=== PATIENT | female | born 1940 | race Caucasian/White ===

== ENCOUNTER 2017-04-17 07:31 | Day surgery (SDC) | payer OTHER, BC ==
[2017-04-13 13:43] VITALS: BMI 34.4
[2017-04-17] MEDS ORDERED: MIDAZOLAM HCL 2 MG/2 ML SINGLE DOSE VIAL ONE (08:55)
[2017-04-17] MEDS ORDERED: ACETAMINOPHEN 325 MG TABLET (FP) PO PRN (09:22)
[2017-04-17] MEDS ORDERED: oxyCODONE HCL 5 MG TABLET PO PRN (09:22)
[2017-04-17] MEDS ORDERED: ONDANSETRON 4 MG/2 ML VIAL IVPB PRN (09:22)
[2017-04-17] MEDS ORDERED: IBUPROFEN 400 MG TABLET (FP) PO PRN (09:22)
--- NOTE | 2017-04-17 09:53 | HP ---
Admitting History and Physical - Admission History of Present Illness: 76 yo postmenopausal women with large cervical polyp noted on routine gynecologic exam Also noted to have thickened, cystic endometrium on ultrasound She denies postmenopausal bleeding She desires surgical intervention - Past Medical History Cardiovascular: No: HTN Pulmonary: Yes: Asthma (as a child) Gastrointestinal: Yes: Diverticulitis (s/p hemocholectomy) ...: 4 ...Para: 4 Heme/Onc: No: Anemia - Past Surgical History Additional Past Surgical History: b/l knee replacement, 2013 hemicolectomy + renanastomosis 2004 replaced two piece decending colon appendix tonsils removed Left knee surgery gallbladder removed R oophorectomy R breast biopsy - benign cyst - Advance Directives Advance Directives: Yes: Health Care Proxy - Smoking History Smoking history: Former smoker Have you smoked in the past 12 months: No Aproximately how many cigarettes per day: 20 If you are a former smoker, when did you quit?: 2001 - Alcohol/Substance Use Hx Alcohol Use: Yes (rarely) Home Medications - Allergies Allergies/Adverse Reactions: Allergies Allergy/AdvReac Type Severity Reaction Status Date / Time Sulfa (Sulfonamide Allergy Intermediate Hives Verified 04/17/17 08:15 Antibiotics) latex Allergy Rash Verified 04/17/17 08:15 TAPE Allergy BLISTERS Uncoded 04/17/17 08:15 - Home Medications Home Medications: Ambulatory Orders Flaxseed Oil [Flaxseed] 1,000 mg PO DAILY 04/13/17 Glucosamine Sulfate Dipot Chlr [Glucosamine] 1,000 mg PO DAILY 04/13/17 Inulin [Fiber Gummies] 2 gm PO DAILY 04/13/17 Magnesium Oxide [Magnesium] 400 mg PO DAILY 04/13/17 Multivitamin [One Daily] 1 each PO DAILY 04/13/17 [place]-3 Fatty Acids/Fish Oil [Fish Oil 1,000 mg Softgel] 1 each PO DAILY Vitamin D3 04/13/17 Amoxicillin - [Amoxicillin 500mg Capsule -] 500 mg PO UTDICT 04/17/17 Family Disease History - Family Disease History Family History: Denies Review of Systems - Review of Systems Constitutional: reports: No Symptoms Neck: reports: No Symptoms Cardiovascular: reports: No Symptoms Respiratory: reports: No Symptoms Gastrointestinal: reports: No Symptoms Genitourinary: reports: No Symptoms Musculoskeletal: reports: No Symptoms Integumentary: reports: No Symptoms Endocrine: reports: No Symptoms Hematology/Lymphatic: reports: No Symptoms Psychiatric: reports: No Symptoms Physical Examination Vital Signs: Vital Signs Temperature 97.9 F 04/17/17 08:12 Pulse Rate 68 04/13/17 13:28 Respiratory Rate 20 04/17/17 08:12 Blood Pressure 136/72 04/17/17 08:12 O2 Sat by Pulse Oximetry (%) 98 04/17/17 08:11 Constitutional: Yes: Well Nourished, No Distress, Calm Cardiovascular: Yes: Regular Rate and Rhythm Respiratory: Yes: Regular, CTA Bilaterally Gastrointestinal: Yes: Normal Bowel Sounds, Soft Edema: No Integumentary: Yes: WNL Neurological: Yes: WNL Psychiatric: Yes: Alert, Oriented Assessment/Plan 76 yo with cervical/endometrial polyp for hysteroscopy, dilation and curettage, polypectomy 1. Consents reviewed and signed Discussed risks including but not limited to infection, bleeding, uterine perforation needing laparoscopy or laparotomy 2. Patient reports needs orthopedic prophylaxis, will give Ancef preop 3. SCDs for DVT prophylaxis 4. Will proceed to OR
[2017-04-17] MEDS ORDERED: ceFAZolin SODIUM 1 GM VIAL ONE (09:59)
[2017-04-17] MEDS ORDERED: ceFAZolin SODIUM 1 GM VIAL IVPB ONE (10:01)
[2017-04-17] MEDS ORDERED: KETOROLAC TROMETHAMINE 30 MG/1 ML VIAL ONE (10:33)
[2017-04-17] MEDS ORDERED: ONDANSETRON 4 MG/2 ML VIAL ONE (10:33)
[2017-04-17] MEDS ORDERED: DEXAMETHASONE SOD PHOSPHATE 4 MG/1 ML VIAL ONE (10:33)
[2017-04-17] MEDS ORDERED: LACTATED RINGERS SOLUTION 1,000 ML IV SCH (11:00)
--- NOTE | 2017-04-17 11:02 | OP ---
Operative Note - Note: Operative Date: 04/17/17 Pre-Operative Diagnosis: endometrial polyp Operation: hysteroscopy, dilation and curettage, polypectomy, endoecerivcal polypectomy Findings: ~ 4cm endocervical polyp, endometrial polyp Post-Operative Diagnosis: Other (endometrial and endocervical polyp) Surgeon: Suze Quach Anesthesiologist/ENVELOPE PRESS OPERATOR: Elian Wade Specimens Removed: 1. endocervical polyp; 2. endometrial polyp Estimated Blood Loss (mls): 5 Instrument used (Debridements only): Trueclear Fluid Volume Replaced (mls): 900 Operative Report Dictated: Yes
[2017-04-17 11:41] VITALS: TEMP 97.8
[2017-04-17 13:58] VITALS: BP 130/70; PULSE 82
--- NOTE | 2017-04-17 18:58 | OP ---
DATE OF OPERATION: 04/17/2017 Attending physician responsible for signing report, Marti Quach M.D. PREOPERATIVE DIAGNOSIS: Endometrial polyp. POSTOPERATIVE DIAGNOSIS: Endometrial and endocervical polyp. SURGERY: Hysteroscopy, dilation and curettage, polypectomy, endometrial polypectomy, and endocervical polypectomy using Truclear system. SURGEON: Marti Quach M.D. ROLLER PNEUMATIC: Elian Wade CRNA ANESTHESIA: General. SPECIMEN REMOVED: Endocervical polyp and endometrial polyp. ESTIMATED BLOOD LOSS: 5 mL. PLATELETS GIVEN: 900 mL. INDICATION: Patient is a 76-year-old 4 para 4 post menopausal woman with incidental finding of large cervical polyp. She underwent ultrasound that showed thickened cystic endometrium. She was counseled regarding medical and surgical options. She opted for surgical management. She was counseled regarding risks, benefits, and alternatives and complications of the procedure including infection, bleeding, damage to any organs such as bowel, bladder, ureters, uterine perforation. She expressed understanding, was brought to operating room. DESCRIPTION OF PROCEDURE: When anesthesia was found to be adequate, patient was prepped and draped in normal sterile fashion, placed in dorsal lithotomy position using Kvng stirrups. A weighted speculum was placed into the posterior portion of the patient's vagina. Anterior lip of the cervix was grasped using a single tooth tenaculum. A large 4-cm polyp was noted on previous exam and on further investigation, was noted to arise from the anterior lip of the cervix. The cervical canal was gently dilated to accommodate a size 14 Jerod dilator, and the 5-mm, 0-degrees scope was placed into the uterine cavity. The Truclear system was used to visualize the polyp, and resection was done under direct visualization. The instrument was removed, good hemostasis was noted. The endocervical polyp was noted and resected using Bovie electrocautery. Good hemostasis was noted. Fluid deficit was 120, total volume used was 1610, and the resection time in the Truclear system was 3 minutes, 51 seconds. All instruments were removed from the patient's vagina. Patient tolerated procedure well. Estimated blood loss was 5 mL. Patient was brought to the recovery room in stable condition. MARTI QUACH M.D. [id number]
--- NOTE | 2017-04-18 15:43 | PATH ---
Surgical Pathology Report Patient Name: SILVA CLARK [facility]. Rec. #: [id number] /Age/Gender: 1940 (Age: 76) / F Account: [id number] Location: [facility] SUR[facility]ICAL Taken: 04/17/2017 Received: 04/17/2017 Reported: 04/18/2017 Physicians: Suze Quach Specimen(s) Received A: ENDOCERVICAL POLYP B: ENDOMETRIAL POLYP Clinical History Cervical polyp Final Diagnosis A. ENDOCERVICAL POLYP, POLYPECTOMY: BENIGN CERVICAL POLYP OF MIXED ENDO- AND ECTOCERVICAL TYPE. B. ENDOMETRIAL POLYP, DILATION, CURETTAGE, POLYPECTOMY: FRAGMENTS OF ENDOMETRIAL POLYP. Electronically Signed Gurjit Shi M.D. Gross Description A. Received in formalin labeled "endocervical polyp" is a 3.6 x 1.1 x 0.5 cm pink-thurston, polypoid portion of soft tissue. The specimen is bisected and entirely submitted in 2 cassettes. B. Received in formalin labeled "endometrial polyp" is a 2.2 x 1.6 x 0.3 cm aggregate of thurston soft tissue fragments. The formalin is filtered and the specimen is entirely submitted in one cassette. 04/17/201704/17/2017
== END 2017-04-17 13:00 | disposition home or self-care (01) ==
LOC: JASU-SURG 07:31
PROVIDERS: ATTEND Obstetrics & Gynecology
PROC: 0UDB8ZX Extraction of Endometrium, Via Natural or Artificial Opening Endoscopic, Diagnostic (ICD-10-PCS; 2017-04-17)
PROC: 0UBC8ZX Excision of Cervix, Via Natural or Artificial Opening Endoscopic, Diagnostic (ICD-10-PCS; principal; 2017-04-17 09:00)
PROC: 0UB98ZX Excision of Uterus, Via Natural or Artificial Opening Endoscopic, Diagnostic (ICD-10-PCS; 2017-04-17 09:00)
DX: N84.0 Polyp of corpus uteri (principal); N84.1 Polyp of cervix uteri
CPT/HCPCS: 86850; 86900; 86901; 88305-TC; 94760

== ENCOUNTER 2018-01-20 11:11 | Emergency (ER) | payer OTHER, BC ==
[2018-01-20 11:37] VITALS: TEMP 98.4; BMI 39.6
--- NOTE | 2018-01-20 11:46 | PDOC ---
History of Present Illness - General Chief Complaint: Lethargy Stated Complaint: LETHARGY, BODY ACHES & STOMACH UPSET Time Seen by Provider: 01/20/18 11:33 - History of Present Illness Initial Comments: 01/20/18 11:46 Chief complaint: Malaise History of present illness: Patient complains that "I do not feel myself" for about 3 days. Complaints are vague and nonspecific, but include mild epigastric pain, pain in the left neck and upper arm, generalized weakness and fatigue. The pain is intermittent and not associated with eating or exertion. Review of systems: Denies dannie chest pain, shortness of breath, fever, cough, orthopnea, PND, or SMITH, nausea, vomiting, diarrhea, urinary tract symptoms including dysuria, vaginal bleeding or discharge. Denies URI symptoms, sore throat. Denies visual or focal neurologic symptoms, lightheadedness, dizziness, unsteadiness of gait, vertigo, or decreased hearing. Remainder systems reviewed and found to be negative Past medical history: Patient is a healthy female with no active medical or surgical problems other than mild reflux, for which she has been prescribed ranitidine, but which she has not used recently. Denies known coronary artery disease, other cardiac or pulmonary disease, diabetes, elevated cholesterol. However, she has an extensive surgical history including oophorectomy for a benign mass, diverticulitis with multiple colon resections, appendectomy, cholecystectomy, and orthopedic knee surgery. No history of renal disease or UTIs. 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 Physical exam: Alert and oriented well-developed well-nourished no acute distress cheerful and cooperative. Patient looks much younger than her age of 77 years. Afebrile, vital signs normal PERRLA 3 mm, fundi benign with sharp disc margins and good central venous pulsations, no hemorrhages or exudates, no AV nicking. ENT clear. Mucous membranes moist Neck supple without bruit mass or nodes Lungs clear with full breath sounds throughout bilaterally CV S1 and S2 distant without murmur rub or gallop pulses full and symmetric no JVD or bruits. There is trace pitting edema of the ankles bilaterally. Abdomen nondistended. Bowel sounds normal. Soft without masses tenderness organomegaly. No CVAT Extremities no cyanosis or clubbing. Edema as described above Neurological C2 to 12 intact. Strength full and symmetric. No focal sensory or motor deficits. It stable and unimpaired. Cerebellum intact. Skin clear, no rash, adequate turgor and wet mucous membranes Impression: Healthy appearing 77-year-old with no active medical problems, presents with a vague symptoms of fatigue, malaise, and epigastric pain. Most likely a mild viral syndrome, but rule out occult cardiac disease or occult infection. Plan: CBC chemistries and cardiac enzymes EKG urinalysis and further evaluation depending on results. Past History - Past Medical History Allergies/Adverse Reactions: Allergies Allergy/AdvReac Type Severity Reaction Status Date / Time Sulfa (Sulfonamide Allergy Intermediate Hives Verified 04/17/17 08:15 Antibiotics) latex Allergy Rash Verified 04/17/17 08:15 TAPE Allergy BLISTERS Uncoded 04/17/17 08:15 Home Medications: Ambulatory Orders Flaxseed Oil [Flaxseed] 1,400 mg PO DAILY 04/13/17 Inulin [Fiber Gummies] 2 gm PO DAILY 04/13/17 Magnesium Oxide [Magnesium] 400 mg PO DAILY 04/13/17 Multivitamin [One Daily] 1 each PO DAILY 04/13/17 [place]-3 Fatty Acids/Fish Oil [Fish Oil 1,000 mg Softgel] 1 each PO BID 04/13/17 Cholecalciferol (Vitamin D3) [Vitamin D3] 1,000 unit PO BID 01/20/18 Cider Vinegar [Apple Cider Vinegar] 500 mg PO DAILY 01/20/18 Ranitidine [Zantac -] 150 mg PO DAILY PRN 01/20/18 Anemia: No Asthma: Yes (DX CHILD-STABLE NO MEDS) Cancer: No Cardiac Disorders: Yes (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,NUC STRESS.ECHO NORMAL) CVA: No COPD: No CHF: No Dementia: No Diabetes: No GI Disorders: Yes (DIVERTICULOSIS, gastritis) Disorders: No HTN: No Hypercholesterolemia: No Liver Disease: No Seizures: No Thyroid Disease: No - Surgical History Abdominal Surgery: Yes (PARTIAL COLECTOMY-2004 for diverticulitis) Appendectomy: Yes ( CHILD) Cardiac Surgery: No Cholecystectomy: Yes (2006) Lung Surgery: No Neurologic Surgery: No Orthopedic Surgery: Yes (LEFT KNEE REPAIR-1972,RIGHT KNEE ARTHROSCOPY-1979, bilat TKR 2013) - Suicide/Smoking/Psychosocial Hx Smoking History: Former smoker Have you smoked in the past 12 months: No Number of Cigarettes Smoked Daily: 20 If you are a former smoker, when did you quit?: 2001 Hx Alcohol Use: Yes (rarely) Drug/Substance Use Hx: No Substance Use Type: None Hx Substance Use Treatment: No ED Treatment Course - LABORATORY CBC & Chemistry Diagram: 01/20/18 12:05 01/20/18 12:00 Medical Decision Making - Medical Decision Making 01/20/18 12:14 EKG: Normal sinus rhythm 70/m. Normal axes and intervals. No ST-T wave changes. Q waves are present in leads V1 and possibly V2. This may signify old anteroseptal NE, or may be a normal variant. 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 This is most likely the same abnormality. 01/20/18 12:56 Laboratories without significant abnormalities. Cardiac enzymes normal. White blood count normal. Urinalysis with chest a trace of blood, culture pending 01/20/18 14:38 Laboratory findings discussed with the patient. No sign of acute cardiac disease , however, cautioned that nothing is 100% and that if symptoms persist or worsen she should return to the emergency room or see primary physician immediately. Trace amount of blood in the urine, to check urine culture and follow-up with urologist as directed. Fully ambulatory and in no distress upon discharge *DC/Admit/Observation/Transfer Diagnosis at time of Disposition: Viral syndrome - Discharge Dispostion Disposition: HOME Condition at time of disposition: Stable Decision to Admit order: No - Referrals Referrals: Gillian Crowley MD [Primary Care Provider] - 3 days - Patient Instructions Printed Discharge Instructions: DI for Viral Syndrome Additional Instructions: There is no sign from the EKG or from blood tests, or from your examination and specific symptoms that you're having a problem with your heart. However, nothing is 100% certain and if his symptoms worsen or you develop any other symptoms of a serious nature, including chest pain, shortness of breath, nausea , perspiring, lightheadedness or dizziness, return to the emergency room immediately. Otherwise see PCP and mold capper for follow-up and further evaluation. Refrain from vigorous physical activity until her symptoms resolve. - Post Discharge Activity
[2018-01-20 11:59] LABS: URINE APPEARANCE Clear; URINE BILIRUBIN Negative (NEGATIVE); URINE GLUCOSE (UA) Negative (NEGATIVE); URINE KETONE Negative (NEGATIVE); URINE LEUK ESTERASE Negative (NEGATIVE); URINE NITRITE Negative (NEGATIVE); URINE PROTEIN Negative (NEGATIVE); URINE UROBILINOGEN 0.2 (0.2-1.0)
[2018-01-20 12:01] LABS: URINE BLOOD Trace-intact (NEGATIVE); URINE COLOR YELLOW
[2018-01-20 12:25] LABS: BASO % 0.5 % (0-2.0); EOS % 1.8 % (0-4.5); HEMATOCRIT 42.2 % (32.4-45.2); HEMOGLOBIN 14.5 GM/dl (10.7-15.3); LYMPH % 27.5 % (8-40); MCH 29.5 pg (25.7-33.7); MCHC 34.3 g/dl (32.0-36.0); MEAN CELL VOLUME 86.1 fl (80-96); MEAN PLT VOLUME 7.1 fl (7.5-11.1); MONO % 8.1 % (3.8-10.2); NEUT % 62.1 % (42.8-82.8); PLATELET COUNT 328 K/MM3 (134-434); RDW 12.4 % (11.6-15.6); WHITE BLOOD COUNT 5.3 K/mm3 (4.0-10.8)
[2018-01-20 12:28] LABS: URINE RBC 0-1 /hpf (0-3)
[2018-01-20 12:29] LABS: EPI CELLS RARE /HPF
[2018-01-20 12:30] LABS: ALBUMIN 3.9 g/dl (3.5-5.0); ALK PHOS 66 U/L (32-92); ANION GAP 5 (8-16); BILIRUBIN,TOTAL 0.6 mg/dl (0.2-1.0); BLOOD UREA NITROGEN 9 mg/dl (7-18); CALCIUM 9.1 mg/dl (8.4-10.2); CHLORIDE 104 mmol/L (98-107); CO2 27 mmol/L (22-28); GLUCOSE,RANDOM 106 mg/dl (74-106); POTASSIUM 3.8 mmol/L (3.5-5.1); SGOT/AST 24 U/L (10-42); SGPT/ALT 23 U/L (10-40); SODIUM 136 mmol/L (136-145); TOT PROT 6.6 g/dl (6.4-8.3)
[2018-01-20 12:38] LABS: CREATININE < 0.8 mg/dl (0.6-1.3)
[2018-01-20 13:00] VITALS: BP 156/74; PULSE 85
--- NOTE | 2018-01-23 00:54 | EKG ---
Test Reason : Blood Pressure : / mmHG Vent. Rate : 070 BPM Atrial Rate : 070 BPM P-R Int : 152 ms QRS Dur : 080 ms QT Int : 398 ms P-R-T Axes : 031 019 046 degrees QTc Int : 429 ms NORMAL SINUS RHYTHM LOW VOLTAGE QRS SEPTAL INFARCT , AGE UNDETERMINED ABNORMAL ECG NO PREVIOUS ECGS AVAILABLE Confirmed by ILNDA ADAMS, INDIRA ([id number]) on 01/23/2018 12:54:08 AM Referred By: MEHREEN CAMPOS Confirmed By:INDIRA MCKEON MD
== END 2018-01-20 13:11 | disposition home or self-care (01) ==
LOC: FER 11:11
DX: B34.9 Viral infection, unspecified (principal); J45.909 Unspecified asthma, uncomplicated; K57.90 Diverticulosis of intestine, part unspecified, without perforation or abscess without bleeding; Z87.891 Personal history of nicotine dependence
CPT/HCPCS: 36415; 80053; 81003; 81015; 82550; 84484; 85025; 87086; 93005; 99284-25

== ENCOUNTER 2019-09-27 19:29 | Inpatient (IN) | payer OTHER, BC ==
[2019-09-27 20:42] LABS: BASO % 0.4 % (0-2.0); EOS % 0.3 % (0-4.5); HEMATOCRIT 44.4 % (32.4-45.2); HEMOGLOBIN 14.9 GM/dl (10.7-15.3); LYMPH % 11.5 % (8-40); MCH 29.9 pg (25.7-33.7); MCHC 33.6 g/dl (32.0-36.0); MEAN CELL VOLUME 89.1 fl (80-96); MEAN PLT VOLUME 7.2 fl (7.5-11.1); MONO % 5.1 % (3.8-10.2); NEUT % 82.7 % (42.8-82.8); PLATELET COUNT 371 K/MM3 (134-434); RBC 4.99 M/mm3 (3.60-5.2); RDW 12.7 % (11.6-15.6); WHITE BLOOD COUNT 10.8 K/mm3 (4.0-10.8)
[2019-09-27 20:44] LABS: EPITHELIAL CELLS MODERATE /hpf
[2019-09-27 20:56] LABS: ALBUMIN 4.4 g/dl (3.4-5.0); BILIRUBIN,TOTAL 0.9 mg/dl (0.2-1); CALCIUM 9.9 mg/dl (8.5-10); CREATININE 0.7 mg/dl (0.55-1.3); POTASSIUM 4.2 mmol/L (3.5-5.1); TOT PROT 7.5 g/dl (6.4-8.2)
--- NOTE | 2019-09-27 21:26 | PDOC ---
Documentation entered by Marilee Suazo SCRIBE, acting as scribe for Debbi Lynch MD. Debbi Lynch MD: This documentation has been prepared by the Gabriele lindsey Aiswarya, SCRIBE, under my direction and personally reviewed by me in its entirety. I confirm that the documentation accurately reflects all work, treatment, procedures, and medical decision making performed by me. History of Present Illness - General Chief Complaint: Pain, Acute Stated Complaint: ABD PAIN Time Seen by Provider: 09/27/19 19:49 History Source: Patient Exam Limitations: No Limitations - History of Present Illness Initial Comments: 09/27/19 20:52 The patient is a 79 year old female, with a significant PMH of asthma, diverticulosis and gastritis, who presents to the emergency department with abdominal pain that began this afternoon. Patient states she was at [place] visiting family when she suddenly endorsed diffuse abdominal pain. She reports pain feels like someone is squeezing her abdomen. Patient endorses associated symptoms of nausea. She states pain progressively continued and came to the ER for further evaluation. The patient denies chest pain, shortness of breath, headache and dizziness.Denies fever, chills, vomit, diarrhea and constipation. Denies dysuria, frequency, urgency and hematuria. PAST MEDICAL HISTORY: no significant history PAST SURGICAL HISTORY: 2005 partial colectomy, appendectomy, cholecystectomy, left knee repair 1972, right knee arthroscopy -1979, bilat TKR 2013 FAMILY HISTORY: no pertinent history SOCIAL HISTORY: Pt lives with family and is employed. MEDICATIONS: reviewed ALLERGIES: As per nursing notes Adult ROS General: No fevers or chills, no weakness, no weight loss CardioVascular: No chest pain or shortness of breath Respiratory:No cough, or wheezing. Gastrointestinal: +nausea + abdominal pain. no diarrhea or constipation, No rectal bleeding Genitourinary: No dysuria, hematuria, or frequency Neurologic: No headache, vertigo, dizziness or loss of consciousness Skin: No rashes or easy bruising Endocrine: no increased thirst or abnormal weight change Allergic: no skin or latex allergy All other systems reviewed and normal Adult Exam: General: Well-nourished well-developed individual, no acute distress Chest: Nontender to palpation Cardiac:+ 2/6 systolic heart murmur at the right sternal border Respiratory:Lungs clear to auscultation bilateral Abdomen:+Increase bowel sound +Tenderness on palpation to the suprapubic umbilical. No guarding or rebound. Extremities: Warm, dry, no cyanosis, clubbing, or edema Skin: No rashes Neuro: Alert and oriented x3, nonfocal exam, grossly intact. Psych: Normal mood and affect Past History - Past Medical History Allergies/Adverse Reactions: Allergies Allergy/AdvReac Type Severity Reaction Status Date / Time Sulfa (Sulfonamide Allergy Intermediate Hives Verified 04/17/17 08:15 Antibiotics) latex Allergy Rash Verified 04/17/17 08:15 TAPE Allergy BLISTERS Uncoded 04/17/17 08:15 Home Medications: Ambulatory Orders Flaxseed Oil [Flaxseed] 1,400 mg PO DAILY 04/13/17 Inulin [Fiber Gummies] 2 gm PO DAILY 04/13/17 Magnesium Oxide [Magnesium] 400 mg PO DAILY 04/13/17 Multivitamin [One Daily] 1 each PO DAILY 04/13/17 [place]-3 Fatty Acids/Fish Oil [Fish Oil 1,000 mg Softgel] 1 each PO BID 04/13/17 Cholecalciferol (Vitamin D3) [Vitamin D3] 1,000 unit PO BID 01/20/18 Cider Vinegar [Apple Cider Vinegar] 500 mg PO DAILY 01/20/18 Ranitidine [Zantac -] 150 mg PO DAILY PRN 01/20/18 Anemia: No Asthma: Yes (DX CHILD-STABLE NO MEDS) Cancer: No Cardiac Disorders: Yes (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,NUC STRESS.ECHO NORMAL) CVA: No COPD: No CHF: No Dementia: No Diabetes: No GI Disorders: Yes (DIVERTICULOSIS, gastritis) Disorders: No HTN: No Hypercholesterolemia: No Liver Disease: No Seizures: No Thyroid Disease: No Other medical history: OBESE - Surgical History Abdominal Surgery: Yes (PARTIAL COLECTOMY-2004 for diverticulitis) Appendectomy: Yes ( CHILD) Cardiac Surgery: No Cholecystectomy: Yes (2006) Lung Surgery: No Neurologic Surgery: No Orthopedic Surgery: Yes (LEFT KNEE REPAIR-1972,RIGHT KNEE ARTHROSCOPY-1979, bilat TKR 2013) - Psycho Social/Smoking Cessation Hx Smoking History: Never smoked Have you smoked in the past 12 months: No Number of Cigarettes Smoked Daily: 20 If you are a former smoker, when did you quit?: 2001 Hx Alcohol Use: Yes (rarely) Drug/Substance Use Hx: No Substance Use Type: None Hx Substance Use Treatment: No *Physical Exam - Vital Signs Last Vital Signs Temp Pulse Resp BP Pulse Ox 98.1 F 95 H 18 144/63 95 09/27/19 19:35 09/27/19 19:35 09/27/19 19:35 09/27/19 19:35 09/27/19 19:35 ED Treatment Course - LABORATORY CBC & Chemistry Diagram: 09/27/19 20:30 09/27/19 20:30 Discharge - Discharge Information Problems reviewed: Yes Clinical Impression/Diagnosis: Bowel obstruction Qualifiers: Intestinal obstruction type: unspecified Intestinal obstruction extent: unspecified extent Qualified Code(s): K56.609 - Unspecified intestinal obstruction, unspecified as to partial versus complete obstruction Condition: Stable - Admission Yes - Follow up/Referral Referrals: Gillian Crowley MD [Primary Care Provider] - - Patient Discharge Instructions - Post Discharge Activity
[2019-09-27] MEDS ORDERED: SODIUM CHLORIDE 1,000 ML IV ONE (22:36)
[2019-09-27] MEDS ORDERED: DEXTROSE 5%-NORMAL SALINE 1,000 ML IV SCH (23:00)
[2019-09-28 00:36] VITALS: BMI 44.1
[2019-09-28 08:23] LABS: BASO % 0.4 % (0-2.0); EOS % 2.6 % (0-4.5); HEMATOCRIT 37.9 % (32.4-45.2); HEMOGLOBIN 12.6 GM/dl (10.7-15.3); LYMPH % 28.2 % (8-40); MCH 29.9 pg (25.7-33.7); MCHC 33.1 g/dl (32.0-36.0); MEAN CELL VOLUME 90.2 fl (80-96); MEAN PLT VOLUME 7.3 fl (7.5-11.1); MONO % 10.6 % (3.8-10.2); NEUT % 58.2 % (42.8-82.8); PLATELET COUNT 276 K/MM3 (134-434); RDW 12.6 % (11.6-15.6); WHITE BLOOD COUNT 5.7 K/mm3 (4.0-10.8)
[2019-09-28 08:32] LABS: ALBUMIN 3.1 g/dl (3.4-5.0); BILIRUBIN,TOTAL 0.6 mg/dl (0.2-1); CALCIUM 8.3 mg/dl (8.5-10); CREATININE 0.6 mg/dl (0.55-1.3); MAGNESIUM 1.8 mg/dL (1.8-2.4); POTASSIUM 3.6 mmol/L (3.5-5.1); TOT PROT 5.4 g/dl (6.4-8.2)
--- NOTE | 2019-09-28 10:35 | EKG ---
Test Reason : Blood Pressure : / mmHG Vent. Rate : 087 BPM Atrial Rate : 087 BPM P-R Int : 144 ms QRS Dur : 084 ms QT Int : 374 ms P-R-T Axes : 049 016 040 degrees QTc Int : 450 ms NORMAL SINUS RHYTHM POSSIBLE LEFT ATRIAL ENLARGEMENT ANTEROSEPTAL INFARCT (CITED ON OR BEFORE 20-JAN-2018) ABNORMAL ECG WHEN COMPARED WITH ECG OF 20-JAN-2018 11:59, NO SIGNIFICANT CHANGE WAS FOUND Confirmed by SOFYA MELENDEZ MD ([id number]) on 09/28/2019 10:34:56 AM Referred By: MD PAL Confirmed By:SOFYA MELENDEZ MD
--- NOTE | 2019-09-28 12:14 | HP ---
CHIEF COMPLAINT: Abdominal pain PCP: Dr. Crowley HISTORY OF PRESENT ILLNESS: 79 year-old female with a PMH significant for multiple abdominal surgeries including hemicolectomy with reanastomosis, presented to the ED with abdominal pain that began in the afternoon. Patient was in [place] visiting family when she suddenly experienced diffuse abdominal pain and nausea, like someone squeezing her abdomen. The pain became progressively worse prompting her to come to the ED for evaluation. Denies fever, sweats,chills, vomiting, diarrhea and constipation. Denies dysuria, frequency, urgency and hematuria. Has had 3 BMS since arriving to hospital, two watery and one with semi-formed stool close to baseline. 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 Smoking: quit 2001 Alcohol: occasional Drugs: no Family history: strong family history of early HI in father and siblings Allergies Sulfa (Sulfonamide Antibiotics) Allergy (Intermediate, Verified 04/17/17 08:15) Hives latex Allergy (Verified 04/17/17 08:15) Rash TAPE Allergy (Uncoded 04/17/17 08:15) BLISTERS USE PAPER TAPE HOME MEDICATIONS: Home Medications Medication Instructions Recorded Flaxseed Oil [Flaxseed] 1,400 mg PO DAILY 04/13/17 Inulin [Fiber Gummies] 2 gm PO DAILY 04/13/17 Magnesium Oxide [Magnesium] 400 mg PO DAILY 04/13/17 Multivitamin [One Daily] 1 each PO DAILY 04/13/17 [place]-3 Fatty Acids/Fish Oil [Fish 1 each PO BID 04/13/17 Oil 1,000 mg Softgel] Cholecalciferol (Vitamin D3) 1,000 unit PO BID 01/20/18 [Vitamin D3] Cider Vinegar [Apple Cider Vinegar] 500 mg PO DAILY 01/20/18 Ranitidine [Zantac -] 150 mg PO DAILY PRN 01/20/18 REVIEW OF SYSTEMS CONSTITUTIONAL: Absent: fever, chills, diaphoresis, generalized weakness, malaise, loss of appetite, weight change HEENT: Absent: rhinorrhea, nasal congestion, throat pain, throat swelling, difficulty swallowing, mouth swelling, ear pain, eye pain, visual changes CARDIOVASCULAR: Absent: chest pain, syncope, palpitations, irregular heart rate, lightheadedness , peripheral edema RESPIRATORY: Absent: cough, shortness of breath, dyspnea with exertion, orthopnea, wheezing, stridor, hemoptysis GASTROINTESTINAL: +abdominal pain, nausea Absent: abdominal distension, vomiting, diarrhea, constipation, melena, hematochezia GENITOURINARY: Absent: dysuria, frequency, urgency, hesitancy, hematuria, flank pain, genital pain MUSCULOSKELETAL: Absent: myalgia, arthralgia, joint swelling, back pain, neck pain SKIN: Absent: rash, itching, pallor HEMATOLOGIC/IMMUNOLOGIC: Absent: easy bleeding, easy bruising, lymphadenopathy, frequent infections ENDOCRINE: Absent: unexplained weight gain, unexplained weight loss, heat intolerance, cold intolerance NEUROLOGIC: Absent: headache, focal weakness or paresthesias, dizziness, unsteady gait, seizure, mental status changes, bladder or bowel incontinence PSYCHIATRIC: Absent: anxiety, depression, suicidal or homicidal ideation, hallucinations. PHYSICAL EXAMINATION Vital Signs - 24 hr 09/27/19 09/27/19 09/27/19 19:35 22:01 23:44 Temperature 98.1 F 98.0 F Pulse Rate 95 H 88 Pulse Rate [ 89 Radial] Respiratory 18 18 18 Rate Blood Pressure 144/63 151/70 Blood Pressure 141/68 [Arm] O2 Sat by Pulse 95 95 95 Oximetry (%) 09/28/19 09/28/19 09/28/19 00:23 02:27 06:00 Temperature 97.9 F 97.7 F Pulse Rate 82 89 Pulse Rate [ Radial] Respiratory 18 18 Rate Blood Pressure 131/42 L 138/59 L Blood Pressure [Arm] O2 Sat by Pulse 95 95 96 Oximetry (%) 09/28/19 08:39 Temperature Pulse Rate Pulse Rate [ Radial] Respiratory 18 Rate Blood Pressure Blood Pressure [Arm] O2 Sat by Pulse 96 Oximetry (%) GENERAL: Awake, alert, and fully oriented, in no acute distress. HEAD: Normal with no signs of trauma. EYES: Pupils equal, round and reactive to light, extraocular movements intact, sclera anicteric, conjunctiva clear. No lid lag. EARS, NOSE, THROAT: Ears normal, nares patent, oropharynx clear without exudates. Moist mucous membranes. NECK: Normal range of motion, supple without lymphadenopathy, JVD, or masses. LUNGS: Breath sounds equal, clear to auscultation bilaterally. No wheezes, and no crackles. No accessory muscle use. HEART: Regular rate and rhythm, normal S1 and S2 without murmur, rub or gallop. ABDOMEN: Soft, nontender, not distended, normoactive bowel sounds, no guarding, no rebound, no masses. No hepatomegaly or splenomegaly. MUSCULOSKELETAL: Normal range of motion at all joints. No bony deformities or tenderness. No CVA tenderness. UPPER EXTREMITIES: 2+ pulses, warm, well-perfused. No cyanosis. No clubbing. No peripheral edema. LOWER EXTREMITIES: 2+ pulses, warm, well-perfused. No calf tenderness. No peripheral edema. NEUROLOGICAL: Cranial nerves II-XII intact. Normal speech. Normal gait. PSYCHIATRIC: Cooperative. Good eye contact. Appropriate mood and affect. SKIN: Warm, dry, normal turgor, no rashes or lesions noted, normal capillary refill. Laboratory Results - last 24 hr 09/27/19 09/27/19 09/27/19 20:05 20:10 20:30 WBC RBC Hgb Hct MCV MCH MCHC RDW Plt Count MPV Absolute Neuts (auto) Neutrophils % Lymphocytes % Monocytes % Eosinophils % Basophils % Sodium Potassium Chloride Carbon Dioxide Anion Gap BUN Creatinine Est GFR (CKD-EPI)AfAm Est GFR (CKD-EPI)NonAf Random Glucose Lactic Acid Calcium Magnesium Total Bilirubin AST ALT Alkaline Phosphatase Creatine Kinase 137 Troponin I < 0.03 Total Protein Albumin Lipase Urine Color Yellow Urine Appearance Clear Urine pH 5.5 Urine Protein 1+ H Urine Glucose (UA) Negative Urine Ketones 1+ H Urine Blood 2+ H Urine Nitrite Negative Urine Bilirubin Negative Urine Urobilinogen 0.2 Ur Leukocyte Esterase Negative Urine RBC >100 Urine WBC 2-5 Ur Transition Epith Cell Moderate Urine Bacteria Moderate 09/27/19 09/27/19 09/27/19 20:30 20:30 20:30 WBC 10.8 RBC 4.99 Hgb 14.9 Hct 44.4 MCV 89.1 MCH 29.9 MCHC 33.6 RDW 12.7 Plt Count 371 MPV 7.2 L Absolute Neuts (auto) 9.0 Neutrophils % 82.7 Lymphocytes % 11.5 Monocytes % 5.1 Eosinophils % 0.3 Basophils % 0.4 Sodium 136 Potassium 4.2 Chloride 100 Carbon Dioxide 27 Anion Gap 9 BUN 14.0 Creatinine 0.7 Est GFR (CKD-EPI)AfAm 96.86 Est GFR (CKD-EPI)NonAf 83.57 Random Glucose 130 H Lactic Acid 2.8 H* Calcium 9.9 Magnesium Total Bilirubin 0.9 AST 32 ALT 40 Alkaline Phosphatase 85 Creatine Kinase Troponin I Total Protein 7.5 Albumin 4.4 Lipase 184 Urine Color Urine Appearance Urine pH Urine Protein Urine Glucose (UA) Urine Ketones Urine Blood Urine Nitrite Urine Bilirubin Urine Urobilinogen Ur Leukocyte Esterase Urine RBC Urine WBC Ur Transition Epith Cell Urine Bacteria 09/27/19 09/28/19 09/28/19 23:20 07:19 07:19 WBC 5.7 RBC 4.20 Hgb 12.6 Hct 37.9 MCV 90.2 MCH 29.9 MCHC 33.1 RDW 12.6 Plt Count 276 MPV 7.3 L Absolute Neuts (auto) 3.4 Neutrophils % 58.2 Lymphocytes % 28.2 Monocytes % 10.6 H Eosinophils % 2.6 Basophils % 0.4 Sodium 139 Potassium 3.6 Chloride 107 Carbon Dioxide 26 Anion Gap 6 L BUN 9.0 Creatinine 0.6 Est GFR (CKD-EPI)AfAm 101.90 Est GFR (CKD-EPI)NonAf 87.92 Random Glucose 110 H Lactic Acid 1.4 Calcium 8.3 L Magnesium 1.8 Total Bilirubin 0.6 AST 21 ALT 27 Alkaline Phosphatase 61 D Creatine Kinase Troponin I Total Protein 5.4 L Albumin 3.1 L Lipase Urine Color Urine Appearance Urine pH Urine Protein Urine Glucose (UA) Urine Ketones Urine Blood Urine Nitrite Urine Bilirubin Urine Urobilinogen Ur Leukocyte Esterase Urine RBC Urine WBC Ur Transition Epith Cell Urine Bacteria ASSESSMENT/PLAN 79 year-old female with a PMH significant for multiple abdominal surgeries including a hemicolectomy and reanastomosis (2004), admitted for possible SBO v. ileus. Possible SBO v. ileus --09/27 CTAP: mild diffuse fluid distension, multiple small bowel loops possibly obstructive --09/28 FUA: rectal fecal impaction, no dilation of colon; no evidence of high -grade sbo; distended loops of small bowel in right mid-abdomen with mild air- fluid levels --patient had a BM following this mornings FUA, passed tiny amount of gas --no vomiting --surgery consult requested Lactic acidosis, resolved --Lactic acid 2.8-->1.4 with IV fluids Hematuria --initial UA >100RBCs; repeat pending; if persists US kidneys/bladder FEN Fluids: D5NS@100mL/hr Electrolytes: replete as indicated Nutrition: NPO DVT prophylaxis: avoid chemical prophylaxis due to possible surgical intervention; SCDs, oob, early ambulation Dispo: continues to require inpatient care. Full code. Visit type - Emergency Visit Emergency Visit: Yes ED Registration Date: 09/27/19 Care time: The patient presented to the Emergency Department on the above date and was hospitalized for further evaluation of their emergent condition. - New Patient This patient is new to me today: Yes Date on this admission: 09/28/19 - Critical Care Critical Care patient: No
[2019-09-28] MEDS ORDERED: ACETAMINOPHEN 1000 MG/100 ML VIAL (NON FORMULARY) IVPB PRN (14:22)
[2019-09-28 14:39] LABS: EPITHELIAL CELLS FEW /hpf
[2019-09-28] MEDS: PANTOPRAZOLE SODIUM 40 MG VIAL IVPB SCH (16:45)
--- NOTE | 2019-09-28 18:14 | CONSULT ---
Consult Consult Specialty:: General Surgery Referred by:: Crow Berrios Reason for Consultation:: ileus vs SBO? - History of Present Illness Chief Complaint: upper abdominal pain, nausea History of Present Illness: 79yo morbidly obese F with h/o asthma (remote), PUD, diverticulitis, arthritis, spinal stenosis, s/p multiple abdominal surgeries (partial colectomy (both sides ) for diverticulitis with primary anastomoses, lex, appy, R oophorectomy), s/ p multiple joint replacements, last EGD/colonoscopy at least couple years ago ( was told next in [address]y [address] Lara), presented last evening to ER with squeezing /gripping upper abdominal pain, in a band across her upper abdomen, associated with later nausea but no vomiting. It had started around 3-4pm, while she was visiting family in [place], after breakfast of oatmeal and fruit; she only had a little soup and tea after the pain started, because it was too bad to eat much. She describes feeling like someone was "squeezing from the inside," different than a 'typical stomachache.' She had a normal, soft BM yesterday morning, as usual, and denies diarrhea or constipation. She drove home from [place], uncomfortable, but then had nausea at home, and a neighbor brought her to ER soon after. In ER, she had normal wbc and labs, except for blood in UA (denied urinary symptoms), and initial lactate 2.8 hydrated to normal with IV fluids. AXR and CT showed evidence of previous surgeries, with some stool evident in rectosigmoid area on AXR, and mildly dilated SB and LB on CT to transition point in rectosigmoid region as well, without mass, free fluid or air. She was admitted to medicine, kept NPO with a few ice chips, and AXR this morning also showed possible impacted stool in the rectum. She has had BMs since that film, the last being very little fecal matter shortly ago. Surgery was asked to assess. She is seen and examined in bed, and reports that her pain had actually improved last night, and that she feels much better now. She still has a little tenderness just left of epigastric area, but it feels even less when lying flat down. She reports easy, soft stools since her partial colectomy, generally regular every morning. Over the last several days, she has snacked in the evenings on pumpkin/sunflower seeds, and did see some shell/fang in her stool earlier today. No lower abdominal pain. She had stomach ulcers in the past, and did take some ranitidine yesterday when the pain began, which did not really help it much. She uses that and Gaviscon occasionally as needed. She reports recent issues with sleeping well, and has considered that she might have sleep apnea. Waking up tired, waking up suddenly overnight, with cough at times... she has tried sleeping on her side instead of her back, which seems to be helping a little. - History Source History Provided By: Patient Limitations to Obtaining History: No Limitations - Past Medical History Cardio/Vascular: Yes: Murmur Pulmonary: Yes: Asthma (as a child) Gastrointestinal: Yes: Diverticulitis (s/p hemocholectomy), Diverticulosis Reproductive: Yes: Postmenopausal Musculoskeletal: Yes: Chronic low back pain (L4-5 spinal stenosis), Osteoarthritis - Past Surgical History Past Surgical History: Yes: Appendectomy, Cholecystectomy, Colectomy (partial - sigmoid and also proximal right side (from diverticulitis) with primary anastomoses), Colonoscopy, Joint Replacement (bilateral knees and left hip), Oopherectomy (right only), Upper Endoscopy - Alcohol/Substance Use Hx Alcohol Use: Yes (rarely) History of Substance Use: reports: None - Smoking History Smoking history: Former smoker Have you smoked in the past 12 months: No If you are a former smoker, when did you quit?: 2001 - Social History ADL: Independent 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 History of Recent Travel: Yes ([place] yesterday) Home Medications - Allergies Allergies/Adverse Reactions: Allergies Allergy/AdvReac Type Severity Reaction Status Date / Time Sulfa (Sulfonamide Allergy Intermediate Hives Verified 04/17/17 08:15 Antibiotics) latex Allergy Rash Verified 04/17/17 08:15 TAPE Allergy BLISTERS Uncoded 04/17/17 08:15 - Home Medications Home Medications: Ambulatory Orders Flaxseed Oil [Flaxseed] 1,400 mg PO DAILY 04/13/17 Inulin [Fiber Gummies] 2 gm PO DAILY 04/13/17 Magnesium Oxide [Magnesium] 400 mg PO DAILY 04/13/17 Multivitamin [One Daily] 1 each PO DAILY 04/13/17 [place]-3 Fatty Acids/Fish Oil [Fish Oil 1,000 mg Softgel] 1 each PO BID 04/13/17 Cholecalciferol (Vitamin D3) [Vitamin D3] 1,000 unit PO BID 01/20/18 Cider Vinegar [Apple Cider Vinegar] 500 mg PO DAILY 01/20/18 Ranitidine [Zantac -] 150 mg PO DAILY PRN 01/20/18 Family Medical History Family Hx Cardiac Disorders: Mother (HTN), Father (and father's side), Sister ( HTN, HLD, has pacemaker) Family Hx Coronary Artery Disease: Father (and father's side) Review of Systems - Review of Systems Constitutional: denies: Chills, Fever Eyes: reports: Other (wears glasses). denies: Recent Change in Vision HENT: denies: Difficult Swallowing, Nasal Congestion, Throat Pain Neck: denies: Stiffness, Swollen Glands Cardiovascular: denies: Chest Pain, Palpitations Respiratory: reports: Other (wakes up with coughing sometimes). denies: Cough, SOB Gastrointestinal: reports: Abdominal Pain (with hpi), Indigestion (at times), Nausea (with hpi). denies: Constipation, Diarrhea, Melena, Rectal Bleeding, Vomiting Genitourinary: denies: Burning, Dysuria, Vaginal Bleeding Musculoskeletal: reports: Back Pain (lower - gets epidural injections), Other ( left lower leg a little larger than right most of the time since knee surgery). denies: Joint Pain, Muscle Pain Integumentary: denies: Change in Color, Rash Neurological: denies: Dizziness, Headache, Unsteady Gait (uses cane occasionally at home) Psychiatric: denies: Anxiety, Depression Physical Exam Vital Signs: Vital Signs Temperature 98.0 F 09/28/19 13:53 Pulse Rate 80 09/28/19 13:53 Respiratory Rate 18 09/28/19 13:53 Blood Pressure 135/62 09/28/19 13:53 O2 Sat by Pulse Oximetry (%) 98 09/28/19 13:53 Constitutional: Yes: No Distress, Calm, Obese Eyes: Yes: Conjunctiva Clear, EOM Intact HENT: Yes: Atraumatic, Normocephalic Neck: Yes: Supple, Trachea Midline Cardiovascular: Yes: Regular Rate and Rhythm, Murmur (systolic) Respiratory: Yes: Regular, CTA Bilaterally Gastrointestinal: Yes: Soft, Abdomen, Obese, Hypoactive Bowel Sounds, Tenderness , Epigastrium (mild - less when lying flat), Other (well-healed scars - right paramedian, midline, left anterior hip). No: Tenderness, Rebound (no babar/guard) ...Rectal Exam: Yes: Hemorrhoids/External (few skin tags present), Sphincter Tone Normal, Other (no stool in vault, little loose yellow-brown on glove tip, no gross blood). No: Mass Renal/: No: CVA Tenderness - Left, CVA Tenderness - Right Musculoskeletal: Yes: Other (healed bilateral knee scars, two on left side). No : Back Pain (no direct tenderness), Joint Stiffness Extremities: No: Cool, Cyanosis Edema: Yes Edema: LLE: 1+ (knee to ankle/foot) Peripheral Pulses WNL: Yes Integumentary: No: Jaundice, Rash Neurological: Yes: Alert, Oriented. No: Unsteady Gait Psychiatric: Yes: Alert, Oriented Labs: CBC, BMP 09/28/19 07:19 09/28/19 07:19 CMP Sodium 139 mmol/L (136-145) 09/28/19 07:19 Potassium 3.6 mmol/L (3.5-5.1) 09/28/19 07:19 Chloride 107 mmol/L (98-107) 09/28/19 07:19 Carbon Dioxide 26 mmol/L (21-32) 09/28/19 07:19 Anion Gap 6 MMOL/L (8-16) L 09/28/19 07:19 BUN 9.0 mg/dl (7-18) 09/28/19 07:19 Creatinine 0.6 mg/dl (0.55-1.3) 09/28/19 07:19 Est GFR (CKD-EPI)AfAm 101.90 09/28/19 07:19 Est GFR (CKD-EPI)NonAf 87.92 09/28/19 07:19 Random Glucose 110 mg/dl (74-106) H 09/28/19 07:19 Lactic Acid 1.4 mmol/L (0.4-2.0) 09/27/19 23:20 Calcium 8.3 mg/dl (8.5-10) L 09/28/19 07:19 Magnesium 1.8 mg/dL (1.8-2.4) 09/28/19 07:19 Total Bilirubin 0.6 mg/dl (0.2-1) 09/28/19 07:19 AST 21 U/L (15-37) 09/28/19 07:19 ALT 27 U/L (13-61) 09/28/19 07:19 Alkaline Phosphatase 61 U/L (45-117) D 09/28/19 07:19 Creatine Kinase 137 U/L (26-192) 09/27/19 20:30 Troponin I < 0.03 ng/ml (0.00-0.05) 09/27/19 20:05 Total Protein 5.4 g/dl (6.4-8.2) L 09/28/19 07:19 Albumin 3.1 g/dl (3.4-5.0) L 09/28/19 07:19 Lipase 184 U/L (73-393) 09/27/19 20:30 Urine Test Results Urine Color Yellow 09/28/19 13:15 Urine Appearance Clear 09/28/19 13:15 Urine pH 6.0 (4.5-8) 09/28/19 13:15 Urine Protein Negative (NEGATIVE) 09/28/19 13:15 Urine Glucose (UA) Negative (NEGATIVE) 09/28/19 13:15 Urine Ketones Negative (NEGATIVE) 09/28/19 13:15 Urine Blood 2+ (NEGATIVE) H 09/28/19 13:15 Urine Nitrite Negative (NEGATIVE) 09/28/19 13:15 Urine Bilirubin Negative (NEGATIVE) 09/28/19 13:15 Ur Leukocyte Esterase Negative (NEGATIVE) 09/28/19 13:15 Urine RBC 20-40 /hpf (0-4) 09/28/19 13:15 Urine WBC 2-5 (NEGATIVE) 09/28/19 13:15 Urine Bacteria Moderate /hpf (NEGATIVE) 09/28/19 13:15 first UA with >100 RBC, 2+ blood U Cx pending Imaging - Results X-ray: Report Reviewed, Image Reviewed (AXR from before and after CT - today's shows possible rectal fecal impaction; pt had BMs since study) Cat Scan: Report Reviewed, Image Reviewed (absent gallbladder and appendix, s/p partial colon resection - proximal right and sigmoid, with anastomoses; mildly dilated, fluid-filled small bowel loops and colon to just below distal anastomosis (upper rectum); no obvious mass, free fluid, free air) Problem List - Problems (1) Upper abdominal pain Assessment/Plan: improved as of last evening, feeling better Code(s): R10.10 - UPPER ABDOMINAL PAIN, UNSPECIFIED (2) Fecal impaction Assessment/Plan: pain essentially resolved, minimal if any epigastric tenderness no further nausea, never had vomiting not SBO - may have been functional/transient LBO secondary to distal stool? no stool currently in vault - may have evacuated what was there vs stool higher in rectum/distal colon seems to be resolving but had no oral contrast to follow through or facilitate evacuation will give oral contrast and repeat AXR later tonight to ensure that it reaches rectum and can be evacuated may need AXR in am if not clearly passing all the way through by then agree with NPO otherwise for now trend lytes discussed with Crow Berrios NP Code(s): K56.41 - FECAL IMPACTION (3) S/P partial colectomy Code(s): Z90.49 - ACQUIRED ABSENCE OF OTHER SPECIFIED PARTS OF DIGESTIVE TRACT (4) PUD (peptic ulcer disease) Assessment/Plan: agree with scheduled antacid Code(s): K27.9 - PEPTIC ULC, SITE UNSP, UNSP AC OR CHR, W/O HEMOR OR PERF (5) Morbid obesity with BMI of 40.0-44.9, adult Code(s): E66.01 - MORBID (SEVERE) OBESITY DUE TO EXCESS CALORIES; Z68.41 - BODY MASS INDEX (BMI) 40.0-44.9, ADULT
[2019-09-29 06:03] VITALS: TEMP 98.4
[2019-09-29] MEDS ORDERED: DEXTROSE 5%-NORMAL SALINE 1,000 ML IV SCH (09:23)
[2019-09-29 09:26] LABS: ALBUMIN 3.4 g/dl (3.4-5.0); ALK PHOS 65 U/L (45-117); ANION GAP 11 MMOL/L (8-16); BILIRUBIN,TOTAL 0.6 mg/dl (0.2-1); CALCIUM 8.5 mg/dl (8.5-10); CHLORIDE 104 mmol/L (98-107); CO2 24 mmol/L (21-32); CREATININE 0.5 mg/dl (0.55-1.3); GLUCOSE,RANDOM 102 mg/dl (74-106); MAGNESIUM 1.7 mg/dL (1.8-2.4); POTASSIUM 3.3 mmol/L (3.5-5.1); SGOT/AST 22 U/L (15-37); SGPT/ALT 29 U/L (13-61); SODIUM 139 mmol/L (136-145); TOT PROT 5.7 g/dl (6.4-8.2)
--- NOTE | 2019-09-29 09:33 | PN ---
Physical Exam: SUBJECTIVE: Patient seen and examined OBJECTIVE: Vital Signs Period Temp Pulse Resp BP Sys/Hernandez Pulse Ox Last 24 Hr 98.0 F-98.4 F 74-85 18-20 121-136/50-62 95-98 GENERAL: The patient is awake, alert, and fully oriented, in no acute distress. HEAD: Normal with no signs of trauma. EYES: PERRL, extraocular movements intact, sclera anicteric, conjunctiva clear. No ptosis. ENT: Ears normal, nares patent, oropharynx clear without exudates, moist mucous membranes. NECK: Trachea midline, full range of motion, supple. LUNGS: Breath sounds equal, clear to auscultation bilaterally, no wheezes, no crackles, no accessory muscle use. HEART: Regular rate and rhythm, S1, S2 without murmur, rub or gallop. ABDOMEN: Soft, nontender, nondistended, normoactive bowel sounds, no guarding, no rebound, no hepatosplenomegaly, no masses. EXTREMITIES: 2+ pulses, warm, well-perfused, no edema. NEUROLOGICAL: Cranial nerves II through XII grossly intact. Normal speech, gait not observed. PSYCH: Normal mood, normal affect. SKIN: Warm, dry, normal turgor, no rashes or lesions noted Laboratory Results - last 24 hr 09/28/19 13:15 Urine Color Yellow Urine Appearance Clear Urine pH 6.0 Urine Protein Negative Urine Glucose (UA) Negative Urine Ketones Negative Urine Blood 2+ H Urine Nitrite Negative Urine Bilirubin Negative Urine Urobilinogen 0.2 Ur Leukocyte Esterase Negative Urine RBC 20-40 Urine WBC 2-5 Ur Transition Epith Cell Few Urine Bacteria Moderate Active Medications Generic Name Dose Route Start Last Admin Trade Name Tyreseq PRN Reason Stop Dose Admin Acetaminophen 1,000 mg 09/28/19 14:22 09/29/19 06:09 Ofirmev Injection - IVPB 09/29/19 14:22 1,000 mg Q6H PRN Administration PAIN LEVEL 1-5 Dextrose/Sodium Chloride 1,000 mls @ 50 mls/hr 09/29/19 09:23 D5-Ns - IV ASDIR [place] Pantoprazole Sodium 40 mg 09/28/19 16:00 09/28/19 16:45 Protonix Iv IVPB 40 mg DAILY [place] Administration ASSESSMENT/PLAN:
[2019-09-29 09:37] LABS: BLOOD UREA NITROGEN < 5.7 mg/dl (7-18)
[2019-09-29] MEDS ORDERED: MAGNESIUM SULF 50% (8.12 MEQ/2 ML-1 GM VIAL) IVPB ONE (10:00)
[2019-09-29] MEDS: PANTOPRAZOLE SODIUM 40 MG VIAL IVPB SCH (10:00)
[2019-09-29] MEDS ORDERED: POTASSIUM CHLORIDE TABS 20 MEQ TABLET.ER (FP) PO SCH (10:45)
[2019-09-29 10:56] LABS: BASO % 0.5 % (0-2.0); EOS % 3.8 % (0-4.5); HEMATOCRIT 38.8 % (32.4-45.2); LYMPH % 38.9 % (8-40); MCHC 33.5 g/dl (32.0-36.0); MEAN CELL VOLUME 89.4 fl (80-96); MEAN PLT VOLUME 7.3 fl (7.5-11.1); NEUT % 45.8 % (42.8-82.8); PLATELET COUNT 259 K/MM3 (134-434); RBC 4.34 M/mm3 (3.60-5.2); RDW 13.8 % (11.6-15.6); WHITE BLOOD COUNT 4.3 K/mm3 (4.0-10.0)
[2019-09-29 14:05] VITALS: BP 140/55; PULSE 89
--- NOTE | 2019-09-29 16:52 | DS ---
Physical Exam: SUBJECTIVE: Patient seen and examined OBJECTIVE: Vital Signs Period Temp Pulse Resp BP Sys/Hernandez Pulse Ox Last 24 Hr 98.3 F-98.4 F 74-89 18-20 121-140/50-58 95-97 PHYSICAL EXAM GENERAL: The patient is awake, alert, and fully oriented, in no acute distress. HEAD: Normal with no signs of trauma. EYES: PERRL, extraocular movements intact, sclera anicteric, conjunctiva clear. ENT: Ears normal, nares patent, oropharynx clear without exudates, moist mucous membranes. NECK: Trachea midline, full range of motion, supple. LUNGS: Breath sounds equal, clear to auscultation bilaterally, no wheezes, no crackles, no accessory muscle use. HEART: Regular rate and rhythm, S1, S2 without murmur, rub or gallop. ABDOMEN: Soft, nontender, nondistended, normoactive bowel sounds, no guarding, no rebound, no hepatosplenomegaly, no masses. EXTREMITIES: 2+ pulses, warm, well-perfused, no edema. NEUROLOGICAL: Cranial nerves II through XII grossly intact. Normal speech, gait not observed. PSYCH: Normal mood, normal affect. SKIN: Warm, dry, normal turgor, no rashes or lesions noted. LABS Laboratory Results - last 24 hr 09/29/19 09/29/19 06:30 06:30 WBC 4.3 RBC 4.34 Hgb 13.0 Hct 38.8 MCV 89.4 MCH 30.0 MCHC 33.5 RDW 13.8 Plt Count 259 MPV 7.3 L Absolute Neuts (auto) 2.0 Neutrophils % 45.8 Lymphocytes % 38.9 Monocytes % 11.0 H Eosinophils % 3.8 Basophils % 0.5 Nucleated RBC % 0 Sodium 139 Potassium 3.3 L Chloride 104 Carbon Dioxide 24 Anion Gap 11 BUN < 5.7 L Creatinine 0.5 L Est GFR (CKD-EPI)AfAm 108.20 Est GFR (CKD-EPI)NonAf 93.36 Random Glucose 102 Calcium 8.5 Magnesium 1.7 L Total Bilirubin 0.6 AST 22 ALT 29 Alkaline Phosphatase 65 Total Protein 5.7 L Albumin 3.4 HOSPITAL COURSE: Date of Admission:09/27/19 Date of Discharge: 09/29/19 Pre hospital course 79 year-old female with a PMH significant for multiple abdominal surgeries including hemicolectomy with reanastomosis, presented to the [facility] with abdominal pain that began in the afternoon. Patient was in [place] visiting family when she suddenly experienced diffuse abdominal pain and nausea, like someone squeezing her abdomen. The pain became progressively worse prompting her to come to the ED for evaluation. Denies fever, sweats,chills, vomiting, diarrhea and constipation. Denies dysuria, frequency, urgency and hematuria. Has had 3 BMS since arriving to hospital, two watery and one with semi-formed stool close to baseline. ER course (1) Lactic acid 2.8 Subsequent hospital course 79 year-old female with a PMH significant for multiple abdominal surgeries including a hemicolectomy and reanastomosis (2004), admitted for possible SBO v. ileus. Possible SBO v. ileus Fecal impaction --09/27 CTAP: mild diffuse fluid distension, multiple small bowel loops possibly obstructive --09/28 FUA: rectal fecal impaction, no dilation of colon; no evidence of high -grade sbo; distended loops of small bowel in right mid-abdomen with mild air- fluid levels --had several BMs, relieving distal stool impaction --seen and evaluated by surgery, no surgical intervention Lactic acidosis, resolved --Lactic acid 2.8-->1.4 with IV fluids Minutes to complete discharge: 35 Discharge Summary Problems reviewed: Yes Reason For Visit: INTESTINAL OBSTRUCTION Current Active Problems Bowel obstruction (Acute) Fecal impaction (Acute) Morbid obesity with BMI of 40.0-44.9, adult (Acute) PUD (peptic ulcer disease) (Acute) S/P partial colectomy (Acute) Upper abdominal pain (Acute) Condition: Improved - Instructions Diet, Activity, Other Instructions: Advance your diet slowly, eat only those foods that agree with you. Stay well-hydrated and eat a high fiber diet. You may want to take Miralax once or twice a day to promote bowel movement and avoid constipation. Return to the emergency department for any new or worsening symptoms. Referrals: Gillian Crowley MD [Primary Care Provider] - Disposition: HOME - Home Medications Comprehensive Discharge Medication List: Ambulatory Orders Flaxseed Oil [Flaxseed] 1,400 mg PO DAILY 04/13/17 Inulin [Fiber Gummies] 2 gm PO DAILY 04/13/17 Magnesium Oxide [Magnesium] 400 mg PO DAILY 04/13/17 Multivitamin [One Daily] 1 each PO DAILY 04/13/17 Hampton-3 Fatty Acids/Fish Oil [Fish Oil 1,000 mg Softgel] 1 each PO BID 04/13/17 Cholecalciferol (Vitamin D3) [Vitamin D3] 1,000 unit PO BID 01/20/18 Cider Vinegar [Apple Cider Vinegar] 500 mg PO DAILY 01/20/18 Ranitidine [Zantac -] 150 mg PO DAILY PRN 01/20/18 This patient is new to me today: No Emergency Visit: Yes ED Registration Date: 09/27/19 Care time: The patient presented to the Emergency Department on the above date and was hospitalized for further evaluation of their emergent condition. Critical Care patient: No - Discharge Referral Referred to [facility] No
== END 2019-09-29 17:54 | disposition home or self-care (01) | DRG 389 ==
LOC: FER 19:29 → FM/S 21:51
PROVIDERS: ADMIT Internal Medicine; ATTEND Nurse Practitioner Acute Care
DX: K56.41 Fecal impaction (principal); E87.2 Acidosis; Z68.41 Body mass index [BMI] 40.0-44.9, adult; K29.70 Gastritis, unspecified, without bleeding; R31.9 Hematuria, unspecified; E66.01 Morbid (severe) obesity due to excess calories; K27.9 Peptic ulcer, site unspecified, unspecified as acute or chronic, without hemorrhage or perforation
CPT/HCPCS: 36415; 74018-TC-FY; 74019-TC-FY; 74177-TC; 80053; 81003; 81015; 82550; 83605; 83690; 83735; 84484; 85025; 87086; 93005; 99283-25; J0131; J7030; Q9967

== ENCOUNTER 2019-10-18 10:07 | Day surgery (SDC) | payer OTHER, BC ==
[2019-10-17 10:51] VITALS: BMI 42.5
[2019-10-18 13:19] VITALS: TEMP 97.7
[2019-10-18 13:54] VITALS: BP 119/88; PULSE 78
--- NOTE | 2019-10-22 17:01 | PATH ---
Surgical Pathology Report Patient Name: SILVA CLARK [facility]. Rec. #: [id number] /Age/Gender: 1940 (Age: 79) / F Account: [id number] Location: U-ENDOSCOPY Taken: 10/18/2019 Received: 10/18/2019 Reported: 10/22/2019 Physicians: Antonia Lara M.D. Specimen(s) Received A: DUODENUM, SECOND PORTION AND BULB B: ANTRUM C: GE JUNCTION D: SIGMOID ANASTOMOSIS, POLYP Clinical History Upper abdominal pain, GERD, surveillance colon polyp screening malignant neoplasm, morbid obesity Postoperative diagnosis: Hiatal hernia, GERD, gastritis, sigmoid anastomotic polyp Final Diagnosis A. DUODENUM, SECOND PORTION AND BULB, BIOPSY: DUODENAL MUCOSA WITH SMALL LYMPHOID AGGREGATES. B. STOMACH, ANTRUM, BIOPSY: GASTRIC ANTRAL MUCOSA WITH MILD CHRONIC GASTRITIS AND INTESTINAL METAPLASIA. NO DYSPLASIA IDENTIFIED. IMMUNOHISTOCHEMICAL STAIN FOR H. PYLORI IS NEGATIVE. C. GE JUNCTION, BIOPSY: SQUAMOUS MUCOSA WITH CHANGES OF MILD REFLUX ESOPHAGITIS. NO COLUMNAR MUCOSA, INTESTINAL METAPLASIA, OR DYSPLASIA IDENTIFIED. D. SIGMOID ANASTOMOSIS, POLYP, POLYPECTOMY: TUBULAR ADENOMA. Immunohistochemical stain performed at [place], [place] ([id number]) and interpreted at [facility]. Positive and negative controls (internal if applicable) show appropriate results. Electronically Signed Pooja Avila M.D. Gross Description A. Received in formalin, labeled "second portion of duodenum and bulb" are 4 [place], irregular portions of soft tissue ranging from 0.2-0.4 cm. in greatest dimension. The specimens are submitted in toto in one cassette. B. Received in formalin, labeled "biopsy antrum" are 2 [place], irregular portions of soft tissue measuring 0.3 and 0.4 cm. in greatest dimension. The specimens are submitted in toto in one cassette. C. Received in formalin, labeled "biopsy GE junction" are 2 [place], irregular portions of soft tissue measuring 0.2 and 0.3 cm. in greatest dimension. The specimens are submitted in toto in one cassette. D. Received in formalin, labeled "sigmoid anastomotic polyp" is a thur[place], irregular portion of soft tissue measuring 0.3 cm. in greatest dimension. The specimen is submitted in toto in one cassette. DL/10/18/2019 saudi/10/18/2019
== END 2019-10-18 14:05 | disposition home or self-care (01) ==
LOC: JASU-ENDO 10:07
PROVIDERS: ATTEND Internal Medicine Gastroenterology
PROC: 0DB98ZX Excision of Duodenum, Via Natural or Artificial Opening Endoscopic, Diagnostic (ICD-10-PCS; 2019-10-18)
PROC: 0DB68ZX Excision of Stomach, Via Natural or Artificial Opening Endoscopic, Diagnostic (ICD-10-PCS; 2019-10-18)
PROC: 0DB58ZX Excision of Esophagus, Via Natural or Artificial Opening Endoscopic, Diagnostic (ICD-10-PCS; 2019-10-18)
PROC: 0DBN8ZX Excision of Sigmoid Colon, Via Natural or Artificial Opening Endoscopic, Diagnostic (ICD-10-PCS; principal; 2019-10-18 11:00)
DX: Z12.11 Encounter for screening for malignant neoplasm of colon (principal); Z86.010 Personal history of colon polyps; K63.5 Polyp of colon; K64.8 Other hemorrhoids; K57.30 Diverticulosis of large intestine without perforation or abscess without bleeding; Z98.0 Intestinal bypass and anastomosis status; K22.70 Barrett's esophagus without dysplasia; K44.9 Diaphragmatic hernia without obstruction or gangrene; K21.9 Gastro-esophageal reflux disease without esophagitis; K29.70 Gastritis, unspecified, without bleeding; K29.80 Duodenitis without bleeding
CPT/HCPCS: 88305-TC